=== PATIENT | female | born 1945 | race Caucasian/White ===

== ENCOUNTER → 2017-09-17 | Outpatient (CLI) | payer MEDICARE, OTHER ==
[~2017-09-17] MED LIST: AMOX-362 PO; ASPI-816 PO; AZE137NAPT NS; AZEL137S; AZEL137S NS; BENZ100C4 PO; CHOL200022 PO; ESOM40CA42 PO; EST625 PO; ESTR0.4513 PO; ESTR42.5 VG; ESTR42.59 VG; FEXO-72 PO; FLU150 PO; FLU180SY9 IM; FLU45SYR25 IM ONLY; FLUT16SP19 NS; GUAI600T57 PO; LACT1CAP6 PO; LEV88 PO; LEVO75TA73 PO; LYSI500T34 PO; METR45CR9 TP; METRONIDAZOLE TP; MULT1TAB64 PO; NEOM10DR44 OT; OMEG-24 PO; PNEU0.5D3 IM; PREMARIN TP; RANI-318 PO; SIMV-54 PO; SULF-198 PO; VITA-131 PO; VITA100T4 PO; [UNRECOGNIZED DRUG - CODE] OU; [UNRECOGNIZED DRUG - OTHER] OU; astelin spray
== END ==
LOC: LAB 10:11
PROVIDERS: ATTEND Emergency Medicine
DX: R10.13 Epigastric pain (principal)
CPT/HCPCS: 87338

== ENCOUNTER → 2017-09-20 | Outpatient (CLI) | payer MEDICARE, OTHER ==
[~2017-09-20] MED LIST changes: +IOPAMIDOL 76% 75 ML INFUS BTL 75 ML ONE; +NS 0.9% 20 ML SDV 20 ML ONE
--- NOTE | 2017-09-20 14:13 | RADIOLOGY IMAGING REPORT ---
FACILITY: [facility] PATIENT NAME: Ken Dempsey : 1945 MR: [id number] V: [id number] EXAM DATE: ORDERING PHYSICIAN: GONSALO HORTON TECHNOLOGIST: Location: [facility] Patient: Ken Dempsey : 1945 Visit/Account:[id number] Date of Sevice: 09/20/2017 ADDENDUM #1 I was incorrect in noting that there was a prior ultrasound 09/06/2017. The patient has not had previ ous cross-sectional abdominal imaging. I cannot recall where I came up with that information that wa s in my initial dictation, but it was erroneous and I apologize for that. If there is any clinical c oncern regarding the liver lesion, MR may have better specificity. Report Dictated By: Jarod Menendez MD at 09/23/2017 1:59 PM Report E-Signed By: Jarod Menendez MD at 09/23/2017 2:01 PM ORIGINAL REPORT EXAMINATION: CT Abdomen W/O Contrast CT Abdomen W/ Contrast CT Pelvis W/O Contrast CT Pelvis W/ Contrast 09/20/2017 9:54 AM HISTORY: Abdominal pain TECHNIQUE: Spiral scans were obtained through the abdomen and pelvis before and during injection of nonionic iodinated intravenous contrast. Contrast: 75 mL of IV Isovue 370. One of the following dose optimization techniques was utilized in the performance of this exam: Autom ated exposure control; adjustment of the mA and/or kV according to the patient's size; or use of an i terative reconstruction technique. Specific details can be referenced in the facility's radiology C T exam operational policy. COMPARISON STUDIES: Ultrasound 09/06/2017. FINDINGS: Liver / biliary: 1.6 cm cyst or possibly hemangioma in the left lobe in front of the anshul hepatis. Prior cholecystectomy. Pancreas: 9 mm ovoid hypodense or cystic focus in the proximal pancreatic tail. Duct is not dilated distal to this.. Spleen: negative Adrenal glands: negative Kidneys / retroperitoneum: negative Pelvic structures: Prior hysterectomy. Ovaries are small or absent. Bowel / peritoneum / mesenteries: Fluid in bowel is related to water the patient ingested for study. No obstruction or focal inflammation is evident. No significant diverticular changes. No ascites o r free air. Vessels: negative Musculoskeletal / Body wall: negative Lymph node assessment: negative Lower chest: negative IMPRESSION: 1. No acute etiology for abdominal pain evident. 2. 9 mm hypodense or cystic focus in the proximal pancreatic tail. This may be an incidental cyst o r possibly a sidebranch IPMN. ACR management recommendations for a lesion of this size in a patient over 65 would recommend two-year follow-up. 3. Hypoenhancing or cystic left lobe liver lesion is almost certainly an incidental cyst or hemangio ma. Report Dictated By: Jarod Menendez MD at 09/20/2017 11:46 AM Report E-Signed By: Jarod Menendez MD at 09/20/2017 2:09 PM WSN:[id number]
== END ==
LOC: CT 06:52
PROVIDERS: ATTEND Emergency Medicine
DX: Z01.812 Encounter for preprocedural laboratory examination (principal); K86.89 Other specified diseases of pancreas; K76.9 Liver disease, unspecified
CPT/HCPCS: 36415; 74178; 82565; 87088; J7050; Q9967

== ENCOUNTER → 2018-02-19 | Outpatient (CLI) | payer MEDICARE, OTHER ==
[~2018-02-19] MED LIST changes: -ASPI-816 PO; +ASPI-870 PO; -IOPAMIDOL 76% 75 ML INFUS BTL 75 ML ONE; -NS 0.9% 20 ML SDV 20 ML ONE
--- NOTE | 2018-02-20 14:58 | RADIOLOGY IMAGING REPORT ---
FACILITY: [facility] PATIENT NAME: TRISHA TORRES : [id number] MR: [id number] V: [id number] EXAM DATE: [id number] ORDERING PHYSICIAN: GONSALO HORTON TECHNOLOGIST: Mary Farah PROCEDURE:BILATERAL DIGITAL SCREENING MAMMOGRAM WITH CAD ASSISTED INTERPRETATION & 3D TOMOSYNTHESIS COMPARISON:Prior mammogram 02/08/17. INDICATIONS:SCREENING FINDINGS: Breast tissue demonstrates scattered fibroglandular elements. There is no suspicious mass, calcification, or architectural distortion. DIAGNOSTIC CATEGORY 2--BENIGN FINDING. RECOMMENDATIONS: ROUTINE MAMMOGRAM AND CLINICAL EVALUATION. IMPRESSION: BIRADS 2: Benign finding. Dictated by: Jarod Melara M.D. on 02/20/2018 at 11:31 Transcribed by: RIDGE on 02/20/2018 at 13:14 Approved by: Jarod Melara M.D. on 02/20/2018 at 14:57 [facility]
== END ==
LOC: MAMO 01:55
PROVIDERS: ATTEND Emergency Medicine
DX: Z12.31 Encounter for screening mammogram for malignant neoplasm of breast (principal)
CPT/HCPCS: 77063; 77067

== ENCOUNTER 2018-04-29 21:54 | Emergency (ER) | payer MEDICARE, OTHER ==
[~2018-04-29 21:54] MED LIST changes: -CHOL200022 PO; +CHOL200085 PO
--- NOTE | 2018-04-29 22:05 | ER Report ---
History and Physical Time Seen By MD: 22:05 Hx. of Stated Complaint: NECK PAIN STARTED IN AM, RADIATING TO LEFT ARM HPI/ROS CHIEF COMPLAINT: Neck stiffness, left-sided neck pain with radiation down the left arm HISTORY OF PRESENT ILLNESS: Patient is a 72-year-old female here with complaints of neck pain which started this morning at approximately 7:30 when the patient woke up which lasted approximately 20 minutes. Patient reports that her neck stiffness recurred around dinnertime and persisted through time of evaluation which was approximately 2200 but this time radiated down her left arm to her elbow. Patient reports that she had a stress test approximately 10 years ago which was normal per patient report. Patient has a history of high cholesterol on a statin, but denies current hypertension though she reports being treated for hypertension several years ago which has since been stopped. Patient reports that she is prediabetic which is diet controlled of the A1c of approximately 6.0. Patient denies chest pain, shortness breath, headache, blurred vision, abdominal pain, nausea, vomiting, fevers or chills, dysuria, hematuria, melena. Patient took 81 mg of aspirin prior to arrival. She denies family history of early cardiac , smoking history. REVIEW OF SYSTEMS: Constitutional: No fever, no chills. Eyes: No discharge. ENT: No sore throat. Cardiovascular: No chest pain, no palpitations. Respiratory: No cough, no shortness of breath. Gastrointestinal: No abdominal pain, no vomiting. Genitourinary: No hematuria. Musculoskeletal: No back pain, + left neck stiffness with radiation down left arm to the elbow Skin: No rashes. Neurological: No headache. Allergies: Coded Allergies: No Known Drug Allergies (Verified , 07/01/07) Home Meds Active Scripts Ranitidine Hcl (RANITIDINE HCL) 150 Mg Tablet, 1 TAB PO BID, #180 TAB 3 Refills Prov:GONSALO HORTON MD 03/17/18 Simvastatin (SIMVASTATIN) 40 Mg Tablet, 1 TAB PO HS, #90 TAB 3 Refills Prov:GONSALO HORTON MD 01/10/18 Levothyroxine Sodium (LEVOTHYROXINE SODIUM) 75 Mcg Tablet, 1 TAB PO QDAY, #90 TAB 3 Refills Prov:GONSALO HORTON MD 10/14/17 Metronidazole (METRONIDAZOLE) 45 Gm Cream..g., 1 GM TP DAILY, #3 TUBE 3 Refills Prov:GONSALO HORTON MD 06/26/16 Reported Medications Desonide (DESONIDE) 15 Gm Oint...g., 15 GM TP DIRECTED 04/29/18 Valacyclovir Hcl (VALACYCLOVIR) 500 Mg Tablet, 500 MG PO PRN 04/29/18 Bacitracin Zinc/Polymyx B Sulf (DOUBLE ANTIBIOTIC OINTMENT) 28.4 Gm Oint...g., TUB ASDIRECTED PRN 04/29/18 Biotin (HARD NAILS) 2,500 Mcg Capsule, 1000 MCG PO DAILY, CAPSULE 04/29/18 Omeprazole Magnesium (PRILOSEC OTC) 20 Mg Tablet.dr, 1 TAB PO QDAY, TAB 04/29/18 Calcium Carbonate/Vitamin D3 (Caltrate 600 + D Soft Chew Tab) 1 Each Tab.chew, 1 TAB PO DAILY 04/29/18 Fish Oil/Dha/Epa (FISH OIL 1,200 MG FISH OIL) 1 Each Capsule, 1 EACH PO BID, CAPSULE 04/29/18 Vitamin E Mixed (VITAMIN E) Unknown Strength Tablet, PO 07/02/17 Azelastine Hcl (AZELASTINE HCL) 137 Mcg/0.137 Ml [place].pump, 1 SPRAY NS PRN for CONGESTION, SPRAY 06/26/16 Carboxymethylcellulose Sodium (Restore Tears) 30 Ml Drops, 1 DROP OU DAILY 06/16/15 Vitamin B Complex (VITAMIN B COMPLEX) 1 Each Tablet, 1 TAB PO DAILY 06/16/15 Cholecalciferol (Vitamin D3) (Vitamin D-3) 2,000 Unit Tablet, 1 TAB PO DAILY 06/16/15 [place]-3 Fatty Acids/Fish Oil (FISH OIL 1,200 MG SOFTGEL) 1 Each Capsule, 1 CAPSULE PO BID, CAPSULE 06/16/15 Lactobacillus Combination No.4 (PROBIOTIC) 1 Each Capsule, 1 CAPSULE PO BID, CAPSULE 06/16/15 Multivitamin (MULTI VITAMIN DAILY) 1 Each Tablet, 1 EACH PO DAILY 06/16/15 Lysine (LYSINE) 500 Mg Tablet, 1 TAB PO DAILY 06/16/15 Discontinued Reported Medications Guaifenesin (MUCINEX) 600 Mg Tablet.er, 600 MG PO BID, TAB 07/02/17 Aspirin (Children's Aspirin) 81 Mg Tab.chew, 1 TAB PO DAILY 06/16/15 Discontinued Scripts Fluticasone Prop 50 Mcg Ns (FLONASE 50 MCG NS) 16 Gm [place].susp, 1 SPRAY NS BID, #1 BOT 11 Refills Prov:GONSALO HORTON MD 07/02/17 Estradiol (ESTRACE) 42.5 Gm Cream.appl, 1 CARMEN VG 2XW, #1 TUB 0 Refills Apply 0.5gm 2xweek. Prov:WINSOME MILLER DNP, NURSE OUTREACH CASE MANAGER-BC 05/03/17 Azelastine Hcl (AZELASTINE HCL) 137 Mcg/0.137 Ml [place].pump, 2 SPRAY NA DAILY, #3 SPRAY 3 Refills Prov:GONSALO HORTON MD 06/26/16 Smoking Status: Never Smoker Exposure to Second Hand Smoke?: No Constitutional Vital Sign - Last 24 Hours 04/29/18 04/29/18 04/29/18 04/29/18 21:58 22:00 22:24 22:30 Temp 98.4 Pulse 71 73 Resp 18 9 B/P (MAP) 153/80 153/80 (104) 151/77 (101) Pulse Ox 90 90 O2 Delivery Room Air Room Air 04/29/18 04/29/18 04/29/18 04/30/18 22:58 23:00 23:30 00:00 Pulse 73 73 67 67 Resp 20 29 9 14 B/P (MAP) 141/68 (92) 137/76 (96) 132/66 (88) 138/67 (90) Pulse Ox 91 89 90 90 O2 Delivery Room Air Room Air Room Air Room Air 04/30/18 04/30/18 04/30/18 04/30/18 00:30 01:00 01:05 01:20 Pulse 69 72 77 Resp 13 13 17 14 B/P (MAP) 135/76 (95) 126/64 (84) Pulse Ox 92 92 89 90 O2 Delivery Room Air Room Air 04/30/18 04/30/18 04/30/18 04/30/18 01:30 01:40 01:50 01:55 Pulse 75 57 Resp 10 13 B/P (MAP) 142/83 (102) 83/44 (57) 78/44 (55) Pulse Ox 93 91 O2 Delivery Room Air 04/30/18 04/30/18 04/30/18 04/30/18 02:00 02:02 02:10 02:15 Pulse 68 70 72 67 Resp 13 12 9 B/P (MAP) 103/66 (78) 118/67 (84) 126/74 (91) Pulse Ox 84 95 94 O2 Delivery Nasal Cannula Nasal Cannula Nasal Cannula O2 Flow Rate 2 2 2 Physical Exam General Appearance: The patient is alert, has no immediate need for airway protection and no signs of toxicity. NAD Eyes: Pupils equal and round no pallor or injection. ENT, Mouth: Mucous membranes are moist. Respiratory: There are no retractions, lungs are clear to auscultation. Cardiovascular: Regular rate and rhythm. Gastrointestinal: Abdomen is soft and non tender, no masses, bowel sounds normal. Neurological: No focal deficits Skin: Warm and dry, no rashes. Musculoskeletal: Neck is supple non tender. Extremities are nontender, nonswollen and have full range of motion. DIFFERENTIAL DIAGNOSIS: After history and physical exam differential diagnosis was considered for chest pain including but not limited to myocardial ischemia, pericarditis pulmonary embolus, chest wall pain, pleural inflammation and pulmonary infectious causes, musculoskeletal pain, muscle strain Medical Decision Making Data Points Result Diagram: 04/29/18220104/29/182201 Laboratory Hematology Test 04/29/18 22:02 04/30/18 00:23 Red Blood Count 4.87 M/uL (4.17-5.56) Mean Corpuscular Volume 89.5 fL (80.0-96.0) Mean Corpuscular Hemoglobin 30.6 pg (26.0-33.0) Mean Corpuscular Hemoglobin Concent 34.2 g/dL (32.0-36.0) Red Cell Distribution Width 13.2 % (11.5-14.5) Mean Platelet Volume 7.8 fL (7.2-11.1) Neutrophils (%) (Auto) 62.6 % (39.4-72.5) Lymphocytes (%) (Auto) 23.2 % (17.6-49.6) Monocytes (%) (Auto) 10.2 % (4.1-12.4) Eosinophils (%) (Auto) 2.1 % (0.4-6.7) Basophils (%) (Auto) 1.9 % (0.3-1.4) Nucleated RBC Relative Count (auto) 0.0 /100WBC Neutrophils # (Auto) 4.9 K/uL (2.0-7.4) Lymphocytes # (Auto) 1.8 K/uL (1.3-3.6) Monocytes # (Auto) 0.8 K/uL (0.3-1.0) Eosinophils # (Auto) 0.2 K/uL (0.0-0.5) Basophils # (Auto) 0.2 K/uL (0.0-0.1) Nucleated RBC Absolute Count (auto) 0.00 K/uL Sodium Level 139 mmol/L (137-145) Potassium Level 3.8 mmol/L (3.5-5.0) Chloride Level 102 mmol/L (98-107) Carbon Dioxide Level 28 mmol/L (22-31) Blood Urea Nitrogen 19 mg/dl (7-18) Creatinine 0.70 mg/dl (0.52-1.04) Glomerular Filtration Rate Calc > 60.0 Random Glucose 95 mg/dl (75-110) Calcium Level 9.3 mg/dl (8.4-10.2) Total Bilirubin 0.3 mg/dl (0.2-1.3) Aspartate Amino Transf (AST/SGOT) 30 U/L (0-35) Alanine Aminotransferase (ALT/SGPT) 33 U/L (0-56) Alkaline Phosphatase 52 U/L (0-126) B-Type Natriuretic Peptide 10 pg/ml (0-100) Total Protein 7.7 g/dl (6.3-8.2) Albumin 4.4 g/dl (3.5-5.0) Troponin I 0.099 ng/ml Chemistry Test 04/29/18 22:02 04/30/18 00:23 White Blood Count 7.8 k/uL (4.5-11.0) Red Blood Count 4.87 M/uL (4.17-5.56) Hemoglobin 14.9 g/dL (12.0-16.0) Hematocrit 43.5 % (34.0-47.0) Mean Corpuscular Volume 89.5 fL (80.0-96.0) Mean Corpuscular Hemoglobin 30.6 pg (26.0-33.0) Mean Corpuscular Hemoglobin Concent 34.2 g/dL (32.0-36.0) Red Cell Distribution Width 13.2 % (11.5-14.5) Platelet Count 253 K/uL (150-450) Mean Platelet Volume 7.8 fL (7.2-11.1) Neutrophils (%) (Auto) 62.6 % (39.4-72.5) Lymphocytes (%) (Auto) 23.2 % (17.6-49.6) Monocytes (%) (Auto) 10.2 % (4.1-12.4) Eosinophils (%) (Auto) 2.1 % (0.4-6.7) Basophils (%) (Auto) 1.9 % (0.3-1.4) Nucleated RBC Relative Count (auto) 0.0 /100WBC Neutrophils # (Auto) 4.9 K/uL (2.0-7.4) Lymphocytes # (Auto) 1.8 K/uL (1.3-3.6) Monocytes # (Auto) 0.8 K/uL (0.3-1.0) Eosinophils # (Auto) 0.2 K/uL (0.0-0.5) Basophils # (Auto) 0.2 K/uL (0.0-0.1) Nucleated RBC Absolute Count (auto) 0.00 K/uL Glomerular Filtration Rate Calc > 60.0 Calcium Level 9.3 mg/dl (8.4-10.2) Total Bilirubin 0.3 mg/dl (0.2-1.3) Aspartate Amino Transf (AST/SGOT) 30 U/L (0-35) Alanine Aminotransferase (ALT/SGPT) 33 U/L (0-56) Alkaline Phosphatase 52 U/L (0-126) B-Type Natriuretic Peptide 10 pg/ml (0-100) Total Protein 7.7 g/dl (6.3-8.2) Albumin 4.4 g/dl (3.5-5.0) Troponin I 0.099 ng/ml EKG/Imaging EKG Interpretation 12 lead EK04/29/2018, 2217-normal sinus rhythm, rate 68, QTC 404, left axis deviation, no ischemic changes or ST elevations. Rhythm: normal sinus rhythm [place]: Left axis deviation QRS: normal ST segments: normal 12 lead EK04/30/2018 119 normal sinus rhythm, rate 69, QTc 413, left axis deviation, no ischemic changes Rhythm: normal sinus rhythm [place]: Left axis deviation QRS: normal ST segments: normal Monitor Interpretation: Normal Sinus Rhythm Imaging Location: [facility] [place] Patient: Ken Dempsey : 1945 Visit/Account:[id number] Date of Sevice: 04/29/2018 TWO VIEW CHEST 04/29/2018 10:14 PM. INDICATION: Chest Pain COMPARISON: 06/05/2011. FINDINGS: Lungs are well-expanded. The lungs are clear. No pneumothorax or pleural effusion. Pulmonary vasculature is unremarkable. Heart size is normal. Cholecystectomy clips. IMPRESSION: No acute cardiopulmonary abnormality. ED Course/Re-evaluation ED Course Patient is a 72-year-old female here with complaints of left-sided neck stiffness which started this morning approximately 7:30 and resolved approximately 20 minutes later. Patient reportedly had recurrence of her neck stiffness now with radiation down her left arm to the elbow which started around dinnertime approximately 1800 persisting through time of evaluation. Patient received the remainder of 324 mg of aspirin as she hadn't taken 81 mg of aspirin prior to arrival. Risk factors include hyperlipidemia on simvastatin, prior history of hypertension which has since been controlled after going off of antihypertensive medications approximately 4 years ago. Patient is prediabetic, controlled by diet. Denies family history of early cardiac or smoking history. Initial EKG showed normal sinus rhythm with no ST elevations or ischemic changes. CBC, CMP were unremarkable. Initial Troponin I was 0.033 with a cutoff of 0.034. Repeat troponin was collected and approximated 2 hours later which was 0.099 with persistent left neck stiffness with radiation down the left arm which was improved with sublingual nitroglycerin. Patient was started on heparin infusion and a repeat EKG showed normal sinus rhythm with no ischemic changes Similar to Prior EKG Findings. I Contacted Cardiology from [facility] he recommended including atorvastatin 80 mg and holding off on Plavix or similar medications in case of left main disease. Dr. Saini was the pole peeler monologist who recommended admission to the hospitalist service for possible cardiac catheterization morning. I further discussed the patient with Dr. Crisostomo who is the hospitalist at [facility] who accepted the patient to his service at [facility]. I updated the patient and the patient's regarding plans for transfer and reasons for transfer for further cardiac workup and likely cardiac catheterization. Patient and patient's voiced understanding of plan. Patient remained hemodynamically stable throughout course, saturating greater than 92% on room air. Decision to Disposition Date: Apr 30, 2018 Decision to Disposition Time: 02:43 Depart Departure Latest Vital Signs Vital Signs Date Time Temp Pulse Resp B/P (MAP) Pulse Ox O2 Delivery O2 Flow Rate FiO2 04/30/18 02:15 67 9 126/74 (91) 94 Nasal Cannula 2 04/29/18 21:58 98.4 Impression: Primary Impression: Non-STEMI (non-ST elevated myocardial infarction) Condition: Improved Disposition: HOME OR SELF-CARE Referrals: GONSALO HORTON MD (PCP) YELITZA DE LOS SANTOS DO Apr 29, 2018 22:05
[2018-04-29] MEDS ORDERED: FISH1CAP15 PO (22:17)
[2018-04-29] MEDS ORDERED: CALC1TAB85 PO (22:19)
[2018-04-29] MEDS ORDERED: OMEP-218 PO (22:19)
[2018-04-29] MEDS ORDERED: [UNRECOGNIZED DRUG - CODE] PO (22:21)
[2018-04-29] MEDS ORDERED: [UNRECOGNIZED DRUG - CODE] ASDIRECTED (22:22)
[2018-04-29 22:24] LABS: PLATELET COUNT, AUTOMATED 253 K/uL (150-450)
[2018-04-29] MEDS ORDERED: VALA500T63 PO (22:25)
[2018-04-29] MEDS ORDERED: DESO15OI9 TP (22:25)
--- NOTE | 2018-04-29 22:28 | EKG ---
[place] [facility] [place] TRISHA TORRES : [id number] MR: [id number] V: [id number] EXAM DATE: ORDERING PHYSICIAN: YELITZA DE LOS SANTOS TECHNOLOGIST: RALPH Chu Reason : CARDIAC Blood Pressure : / mmHG Vent. Rate : 068 BPM Atrial Rate : 068 BPM P-R Int : 202 ms QRS Dur : 084 ms QT Int : 380 ms P-R-T Axes : 043 -47 041 degrees QTc Int : 404 ms Normal sinus rhythm Left axis deviation Nonspecific T wave abnormality Abnormal ECG No previous ECGs available Confirmed by Yobani George ([id number]) on 04/30/2018 6:31:43 AM Referred By: Confirmed By:Yobani Paris
[2018-04-29] MEDS ORDERED: ASPIRIN 81 MG CHEW PO ONE (22:45)
--- NOTE | 2018-04-29 23:24 | RADIOLOGY IMAGING REPORT ---
FACILITY: [facility] [place] PATIENT NAME: Ken Dempsey : 1945 MR: [id number] V: [id number] EXAM DATE: ORDERING PHYSICIAN: YELITZA DE LOS SANTOS TECHNOLOGIST: Location: [facility] Patient: Ken Dempsey : 1945 Visit/Account:[id number] Date of Sevice: 04/29/2018 TWO VIEW CHEST 04/29/2018 10:14 PM. INDICATION: Chest Pain COMPARISON: 06/05/2011. FINDINGS: Lungs are well-expanded. The lungs are clear. No pneumothorax or pleural effusion. Pulmo nary vasculature is unremarkable. Heart size is normal. Cholecystectomy clips. IMPRESSION: No acute cardiopulmonary abnormality. Report Dictated By: Chris Mary MD at 04/29/2018 11:18 PM Report E-Signed By: Chris Mary MD at 04/29/2018 11:20 PM WSN:[id number]
[2018-04-30] MEDS ORDERED: HEPARIN* SOD/D5W 25000 U/500ML 500 ML IV ONE ×3 (01:21→01:34)
[2018-04-30] MEDS ORDERED: HEPARIN (PORC) 5000 UN/ML VIAL IVP ONE (01:25)
[2018-04-30] MEDS ORDERED: NITROGLYCERIN 0.4 MG SUBL SL ONE (01:30)
[2018-04-30] MEDS ORDERED: ATORVASTATIN 10 MG TAB PO ONE (01:45)
[2018-04-30] MEDS ORDERED: NS(*) 0.9% 1000 ML BAG 1,000 ML IV ONE (02:00)
--- NOTE | 2018-04-30 02:18 | EKG ---
FACILITY: [facility] - [place] PATIENT NAME: TRISHA TORRES : [id number] MR: [id number] V: [id number] EXAM DATE: ORDERING PHYSICIAN: YELITZA DE LOS SANTOS TECHNOLOGIST: RALPH Chu Reason : REPEAT EKG Blood Pressure : / mmHG Vent. Rate : 069 BPM Atrial Rate : 069 BPM P-R Int : 198 ms QRS Dur : 082 ms QT Int : 386 ms P-R-T Axes : 051 -46 039 degrees QTc Int : 413 ms Normal sinus rhythm Left axis deviation Nonspecific T wave abnormality Abnormal ECG When compared with ECG of 29-APR-2018 22:17, No significant change was found Confirmed by Yobani George ([id number]) on 04/30/2018 6:32:07 AM Referred By: Confirmed By:Yobani Paris
[2018-04-30 03:00] VITALS: BP 139/69
== END 2018-04-30 03:20 | disposition short-term general hospital (02) ==
LOC: ER 22:13
DX: I21.4 Non-ST elevation (NSTEMI) myocardial infarction (principal)
CPT/HCPCS: 36415; 71046; 83880; 84484; 85025; 93005; 96365; 99285; A9270; J1644; J7030; 82040; 82247; 82310; 82374; 82435; 82565; 82947; 84075; 84132; 84155; 84295; 84450; 84460; 84520

== ENCOUNTER → 2018-04-30 | Outpatient (CLI) | payer MEDICARE, OTHER ==
[~2018-04-30] MED LIST changes: +ATOR40TA24 PO; +CALC1TAB85 PO; +DESO15OI9 TP; +FISH1CAP15 PO; +OMEP-218 PO; +VALA500T63 PO; +[UNRECOGNIZED DRUG - CODE] ASDIRECTED; +[UNRECOGNIZED DRUG - CODE] PO
== END ==
LOC: AMB 03:06
PROVIDERS: ATTEND Nurse Practitioner
DX: I21.4 Non-ST elevation (NSTEMI) myocardial infarction (principal)
CPT/HCPCS: A0425; A0426

== ENCOUNTER → 2018-07-29 | Outpatient (CLI) | payer MEDICARE, OTHER ==
[~2018-07-29] MED LIST changes: +CHOL200022 PO; -CHOL200085 PO; +CYCL-277 PO; +LEVO50TA86 PO
--- NOTE | 2018-07-29 16:54 | RADIOLOGY IMAGING REPORT ---
FACILITY: [facility] PATIENT NAME: Ken Dempsey : 1945 MR: [id number] V: [id number] EXAM DATE: ORDERING PHYSICIAN: GONSALO HORTON TECHNOLOGIST: Location: [facility] [place] Patient: Ken Dempsey : 1945 Visit/Account:[id number] Date of Sevice: 07/29/2018 DEXA Scan Clinical history: Postmenopausal. Comparison: DEXA scan from 02/05/2013. LUMBAR SPINE: The bone mineral density (BMD) measured from L1-L4 correlates with a Z-score of 1.8 and a T-score of -0.1 which is Normal as defined by the World Health Organization. The corresponding risk of fracture in the lumbar spine is Not increased compared with a young adult reference population. This value h as increase by 1.2 % since the prior study. More than 5% change is considered significant. HIP: Bone mineral density (BMD) measured in the LEFT total hip region correlates with a Z-score 1.5 and a T-score of -0.3 which is normal as defined by the World Health Organization. The corresponding risk of fracture in the hip is Not i ncreased compared to a young adult reference population. This value has decrease by 0.4 % since the p rior study. More than 5% change is considered significant. T score left femoral neck -1.4 Bone mineral density (BMD) measured in the Femoral Neck region measures 0.837 g/cm?. IMPRESSION: 1. Lumbar spine: Normal. There has been 1.2% increase in the bone mineral density since the previou s exam. 2. Left Total Hip: Normal. There has been 0.4% decrease in the bone mineral density since the previ ous exam. 3. Femoral Neck: Bone Mineral Density is 0.837 g/cm? The next DEXA scan of this patient should include the following sites: L1-L4 and the left hip. FRAX? WHO Fracture Risk Assessment Tool link: <http://www.shef.ac.uk/FRAX/tool.jsp?locationValue=9> PLEASE NOTE: 1) The World Health Organization defines low BMD as follows: T-score Normal > -1 Osteopenia < -1 and > -2.5 Osteoporosis < -2.5 without fractures Established osteoporosis < -2.5 with fractures 2) In general, you may wish to consider: Diagnosis Treatment Follow-up DEXA Normal BMD Prevention 2-3 years Osteopenia Prevention/therapy 1-2 years Osteoporosis Therapy Yearly 3) Fracture risk estimated from the T-score is more accurate for vertebral fractures (often spontane ous) than for hip fractures. Report Dictated By: Sharmila Ca MD at 07/29/2018 4:48 PM Report E-Signed By: Sharmila Ca MD at 07/29/2018 4:49 PM WSN:[id number]
== END ==
LOC: RAD 00:56
PROVIDERS: ATTEND Emergency Medicine
DX: Z78.0 Asymptomatic menopausal state (principal)
CPT/HCPCS: 77080

== ENCOUNTER → 2018-11-09 | Outpatient (REF) | payer MEDICARE, OTHER ==
[~2018-11-09] MED LIST changes: +ASPI81TA86 PO; +BACI28.431 ASDIRECTED; +CALC600T82 PO; +DIPH-618 PO; +NYST15CR32 TP; +NYST15PO4 TP; +PHEN10TA; +VITA1CAP46 PO; -[UNRECOGNIZED DRUG - CODE] ASDIRECTED
== END ==
LOC: ZZSTITCHES 14:13
PROVIDERS: ATTEND Physician Assistant
DX: N39.0 Urinary tract infection, site not specified (principal)
CPT/HCPCS: 87088

== ENCOUNTER 2018-12-25 13:45 | Outpatient (RCR) | payer MEDICARE, OTHER ==
--- NOTE | 2018-12-10 11:01 | PT INITIAL EVALUATION ---
MEDICAL DIAGNOSIS: neck pain TREATMENT DIAGNOSIS: same DATE OF ONSET: 04/29/18 SUBJECTIVE: Ken Dempsey presents to physical therapy with complaints of neck pain that started the April. She reports that she woke up with a stiff neck and by the end of the day, she has pain from her neck to her hand. She reports that she went to an Orthopedic physician in [place] and was placed on steroids and she states that things improved; however, she informed the surgeon that she did not want surgery; therefore, she did not have any imaging done or any follow up appointments. She reports that the surgeon did not refer her to physical therapy because it will only make her worse and not do anything go. However, she continues to have pain and stiffness around the neck and the shoulder region and would like to know some exercises that might help with the neck pain/stiffness to potentially reduce it and get her motion back to normal; therefore, she was referred by her primary physician. She reports that the pain is better with sitting and worse with walking and turning her head from side to side. . Pain location is [id number] UT/levator scapulae region and described as achiness and stiffness. Pain scale is 4 on a ten point pain scale. REHAB PROBLEM LIST: Increased Pain Decreased ROM Decreased Strength Decreased Function Decreased ADL's PREVIOUS MEDICAL HISTORY: See EMR OCCUPATION: Retired OBJECTIVE: Posture: She demonstrates minimal forward head, B rounded shoulders, increased thoracic kyphosis, and decreased lumbar lordosis. ROM: Cervical AROM: protrusion: NIL with normal end feel. flexion: NIL with normal end feel. RET: minimal restriction with pain. Extension: minimal restriction with pain. lateral flexion R: minimal restriction with L sided pain. lateral flexion L: moderate restriction with L sided pain (stretch pain), rotation R: minimal restriction with pain. rotation L: minimal restriction with pain. Palpation: TTP: [id number] UT/levator scapulae region Special Tests: Repeated flexion: increased muscular stretch during the test and cervical motion and pain was the same following the test. Repeated RET: increased stretch pain during the test and increased motion and potentially decreased pain following the session. Repeated LF-L: increased muscular stretch during the test and increased motion and potentially decreased pain following the session. Mobility: Independent ASSESSMENT: She will potentially benefit from physical therapy as she demonstrated a provisional classification of cervical dysfunction since all the structures have fully healed while continuing to have a derangement resulting in lasting pain that will improve with repeated movements in the restricted directions to remodel the tissues until we are able to resolve the injury. Short Term Goals 2 weeks: Pt will demonstrate directional preference to improve cervical AROM and reduce cervical pain to improve function and QOL. 4 weeks: If she demonstrates directional preference, she will demonstrate increased cervical AROM in all directions and abolished cervical pain to improve function and QOL. 6 weeks: If she demonstrates directional preference, she will demonstrate a return to full cervical AROM in all directions, abolished cervical pain, and return to prior level of function with education to prevent reoccurrences in the future to improve function and QOL. Patient's Goals reduce stiffness, improve cervical range of motion, and be able to figure exercises that helps with maintaining motion and reducing pain PLAN: Patient to be seen for Manual Therapy/STM/MET Strengthening/condition Range of Motion Spinal Stabilization Work Hardening/Cond Stretching Neuromuscular Re-ed Closed Chain Program Posture/Body mechanics Home Exercise Program Therapeutic Activities 2x/Week for 6 Weeks If you have any questions, comments, or concerns about this report or plan, please contact me at . Thank you, Brian Lange, PT, DPT MTDD
[~2018-12-25 13:45] MED LIST changes: +BIOT10004; +[UNRECOGNIZED DRUG - CODE] PO
--- NOTE | 2018-12-25 14:24 | PT PLAN OF CARE ---
Physician: Elza Reddy MD Patient is being seen: 2x/week Therapist: Brian Lange, PT, DPT Medical Diagnosis: neck pain Treatment Diagnosis: same Date of Onset: 04/29/18 Date of Initial Evaluation: 12/09/18 Date patient was last seen: 12/25/18 Number of treatments: 6 Number of cancellations/No shows: 0 INTERVENTIONS: Manual Therapy/STM/MET Strengthening/condition Range of Motion Spinal Stabilization Work Hardening/Cond Stretching Neuromuscular Re-ed Closed Chain Program Posture/Body mechanics Home Exercise Program Therapeutic Activities GOALS: 2 weeks: Pt will demonstrate directional preference to improve cervical AROM and reduce cervical pain to improve function and QOL. MET 4 weeks: If she demonstrates directional preference, she will demonstrate increased cervical AROM in all directions and abolished cervical pain to improve function and QOL. MET 6 weeks: If she demonstrates directional preference, she will demonstrate a return to full cervical AROM in all directions, abolished cervical pain, and return to prior level of function with education to prevent reoccurrences in the future to improve function and QOL. Will meet with current plan in place PATIENT'S GOAL: reduce stiffness, improve cervical range of motion, and be able to figure exercises that helps with maintaining motion and reducing pain Status of Patient's Goals: Progressed well...will meet with current plan in place Patient Compliance: Excellent Prognosis: Fair Reasons for continuing therapy: This is a discharge note for Ken Dempsey. She reports that she is doing well. She currently denies any pain or soreness in her cervical spine. She reports that she only feels discomfort in the morning and feels more like stiffness versus pain. She reports that she would like to try to manage this on her own with a home exercise program. She continues to demonstrate directional preference as it has been abolishing her pain and slightly improving her cervical motion. She was educated on what to do until the pain abolishes. She was also educated on how to prevent reoccurrences once the pain has abolished in the future. She reports that she feels comfortable with the home exercise plan moving forward. As a result, she will be discharged from PT. Posture: She demonstrates minimal forward head, B rounded shoulders, increased thoracic kyphosis, and decreased lumbar lordosis. ROM: Cervical AROM: protrusion: NIL with normal end feel. flexion: NIL with normal end feel. RET: NIL with normal end feel. Extension: NIL with normal end feel. lateral flexion R: NIL with normal end feel. lateral flexion L: NIL with normal end feel, rotation R: minimal restriction with muscular stretch. rotation L: minimal restriction with muscular stretch. Palpation: TTP: No longer TTP Mobility: Independent If you have any questions, please contact me at [phone]. Thank you, Brian Lange, PT, DPT MTDD
== END 2018-12-25 18:00 | disposition home or self-care (01) ==
LOC: PT 13:45
PROVIDERS: ATTEND Emergency Medicine
DX: M54.2 Cervicalgia (principal)
CPT/HCPCS: 97162

== ENCOUNTER 2019-02-06 00:06 | Day surgery (SDC) | payer MEDICARE, OTHER ==
[~2019-02-06] VITALS: Ht 158.8 cm; Wt 59.9 kg
[2019-02-06 06:59] VITALS: BP 146/82
[2019-02-06] MEDS ORDERED: NORMOSOL R SOLN(*) 1000 ML BAG 1,000 ML IV PRN (07:05)
[2019-02-06] MEDS ORDERED: LIDOCAINE/SOD BICARB 8.4% SYR ID ONE (07:05)
[2019-02-06] MEDS ORDERED: PROPOFOL EMUL(*) 10MG/ML 20 ML 60 ML ONE (07:05)
[2019-02-06] MEDS ORDERED: LIDOCAINE MPF 1% 5 ML VIAL ONE (07:05)
[2019-02-06 08:33] VITALS: BP 107/56
--- NOTE | 2019-02-06 08:43 | Short(Outpt) Discharge Summary ---
Discharge Summary Reason for Hosp/Final Diag: (1) Fecal occult blood test positive Hospital Course & Plan: pt presented for colonoscopy. she tolerated the procedure well and will be discharged home when criteria met. Departure Discharge to: Home Discharge Instructions Home Meds Active Scripts Valacyclovir Hcl (VALACYCLOVIR) 500 Mg Tablet, 500 MG PO BID, #6 TAB 5 Refills Prov:GONSALO HORTON MD 01/14/19 Metronidazole (METRONIDAZOLE) 45 Gm Cream..g., 1 GM TP DAILY, #3 TUBE 3 Refills Prov:GONSALO HORTON MD 01/14/19 Levothyroxine Sodium (LEVOTHYROXINE SODIUM) 50 Mcg Tablet, 50 MCG PO QDAY, #90 TAB 3 Refills Prov:GONSALO HORTON MD 09/08/18 Azelastine Hcl 0.1% Leopold (AZELASTINE HCL 0.1% SPRAY) 137 Mcg/0.137 Ml Leopold.pump, 2 SPRAY NS BID PRN for CONGESTION, #1 BOTTLE 5 Refills Prov:GONSALO HORTON MD 07/31/18 Atorvastatin Calcium (LIPITOR) 40 Mg Tablet, 1 TAB PO QDAY, #90 TAB 3 Refills Prov:GONSALO HORTON MD 07/08/18 Ranitidine Hcl (RANITIDINE HCL) 150 Mg Tablet, 1 TAB PO BID, #180 TAB 3 Refills Prov:GONSALO HORTON MD 03/17/18 Reported Medications Estradiol (ESTRACE) 42.5 Gm Cream.appl, 42.5 GM VG DAILY 01/30/19 Lactase (LACTASE ENZYME) Unknown Strength Tablet, PO 12/11/18 Biotin (Biotin) 1,000 Mcg Tab.chew 12/11/18 Diphenhydramine Hcl (DIPHENHYDRAMINE HCL) 25 Mg Tablet, 12.5 MG PO HS, TAB 08/18/18 Phenylephrine HCl (Sinus PE Decongestant) 10 Mg Tablet 08/18/18 Guaifenesin (MUCINEX) 600 Mg Tablet.er, 600 MG PO PRN 08/18/18 Vitamin B Complex (VITAMIN B COMPLEX) Unknown Strength Capsule, PO 2XW, CAPSULE 08/18/18 Calcium Carbonate (CALCIUM CARBONATE) 600 Mg Tablet, 1200 MG PO DAILY 08/18/18 Desonide (DESONIDE) 15 Gm Oint...g., 15 GM TP DIRECTED 04/29/18 Bacitracin Zinc/Polymyx B Sulf (DOUBLE ANTIBIOTIC OINTMENT) 28.4 Gm Oint...g., TUB ASDIRECTED PRN 04/29/18 Vitamin E Mixed (VITAMIN E) Unknown Strength Tablet, 30 MG PO 3XW 07/02/17 Carboxymethylcellulose Sodium (Restore Tears) 30 Ml Drops, 1 DROP OU DAILY 06/16/15 Cholecalciferol (Vitamin D3) (Vitamin D-3) 2,000 Unit Tablet, 1 TAB PO DAILY 06/16/15 Lactobacillus Combination No.4 (PROBIOTIC) 1 Each Capsule, 1 CAPSULE PO BID, CAPSULE 06/16/15 Multivitamin (MULTI VITAMIN DAILY) 1 Each Tablet, 1 EACH PO DAILY 06/16/15 Lysine (LYSINE) 500 Mg Tablet, 1 TAB PO DAILY 06/16/15 Discontinued Reported Medications Fish Oil/Dha/Epa (FISH OIL 1,200 MG FISH OIL) 1 Each Capsule, 1 EACH PO BID, CAPSULE 04/29/18 Diet: Regular Activity: As Tolerated Special Instructions: we will call you in 10 days with results. LIAM CAMARILLO Feb 06, 2019 08:43
[2019-02-06 09:00] VITALS: BP 120/72
[2019-02-06 09:10] VITALS: BP 117/75
[2019-02-06 09:40] VITALS: BP 148/84
[2019-02-06 10:21] VITALS: BP_SYST 112; BP_SYST 126; BP_DIAS 65; BP_DIAS 80
== END 2019-02-06 10:45 | disposition home or self-care (01) ==
LOC: OR 00:06
PROVIDERS: ATTEND Surgery
DX: K63.5 Polyp of colon (principal); K57.30 Diverticulosis of large intestine without perforation or abscess without bleeding
CPT/HCPCS: 00811; 45385; 88305; J2001; J2704

== ENCOUNTER → 2019-03-09 | Outpatient (CLI) | payer MEDICARE, OTHER ==
--- NOTE | 2019-03-10 11:32 | RADIOLOGY IMAGING REPORT ---
FACILITY: [facility] PATIENT NAME: TRISHA TORRES : [id number] MR: [id number]: [id number] EXAM DATE: [id number] ORDERING PHYSICIAN: GONSALO HORTON TECHNOLOGIST: Emy Lerner PROCEDURE: BILATERAL DIGITAL SCREENING MAMMOGRAM WITH CAD ASSISTED INTERPRETATION & 3D TOMOSYNTHESIS REASON FOR STUDY: Screening. COMPARISON: 02/19/18, priors to 12/28/13. VIEWS OBTAINED: 2D & 3D full field CC & MLO projections. BREAST DENSITY: The breasts have scattered fibroglandular parenchymal densities. MAMMOGRAM FINDINGS: Benign appearing calcifications bilaterally including a grouping at the 12 o'clock area of the Right breast. No mammographic findings concerning for malignancy. No significant interval change. IMPRESSION: BIRADS 2: Benign finding. DIAGNOSTIC CATEGORY 2-BENIGN FINDING. RECOMMENDATIONS: ROUTINE MAMMOGRAM AND CLINICAL EVALUATION IN 1YR. Dictated by: Jarod Menendez on 03/10/2019 at 9:27 Transcribed by: RIDGE on 03/10/2019 at 11:02 Approved by: Jarod Menendez on 03/10/2019 at 11:27 [facility]
== END ==
LOC: MAMO 01:03
PROVIDERS: ATTEND Emergency Medicine
DX: Z12.31 Encounter for screening mammogram for malignant neoplasm of breast (principal)
CPT/HCPCS: 77063; 77067

== ENCOUNTER → 2019-03-21 | Outpatient (CLI) | payer MEDICARE, OTHER ==
[~2019-03-21] MED LIST changes: +VANC125C4 PO
== END ==
LOC: LAB 09:56
PROVIDERS: ATTEND Nurse Practitioner Primary Care
DX: R19.7 Diarrhea, unspecified (principal)
CPT/HCPCS: 82274; 83630; 87045; 87177; 87324; 87449

== ENCOUNTER → 2019-03-24 | Outpatient (CLI) | payer MEDICARE, OTHER | LOC: LAB 09:08 | PROVIDERS: ATTEND Nurse Practitioner Primary Care | DX: R19.7 Diarrhea, unspecified (principal) | CPT/HCPCS: 87493 ==